=== PATIENT | male | born 1985 | race African-American/Black ===

== ENCOUNTER 2020-09-15 17:14 | Emergency (ER) | payer OTHER ==
[~2020-09-15] VITALS: Ht 170.2 cm; Wt 77.1 kg
[2020-09-15 20:06] LABS: HEMATOCRIT 31.1 % (42.0-52.0); HEMOGLOBIN 10.4 gm/dL (14.0-18.0); MCH 30.5 pg (26.0-34.0); MCHC 33.6 g/dL (28.0-37.0); MCV 90.8 fL (80.0-100.0); RBC 3.43 mil/uL (4.50-6.00); WBC 6.8 thou/uL (4.0-11.0)
[2020-09-15 20:19] LABS: CALCIUM 8.7 mg/dL (8.5-10.1); CREATININE 1.1 mg/dL (0.7-1.3); POTASSIUM 4.3 mmol/L (3.5-5.1)
[2020-09-15 20:25] LABS: ALBUMIN 3.2 g/dL (3.4-5.0); TOTAL BILIRUBIN 0.1 mg/dL (0.2-1.0); TOTAL PROTEIN 6.4 g/dL (6.4-8.2)
[2020-09-15] MEDS ORDERED: PERCOCET 5-3251 EACH PO (21:22)
[2020-09-15 21:35] VITALS: BP 115/71
== END 2020-09-15 21:35 | disposition home or self-care (01) ==
LOC: ER 17:14
PROVIDERS: Nurse Practitioner Family
DX: S22.42XA Multiple fractures of ribs, left side, initial encounter for closed fracture (principal); J94.2 Hemothorax; X58.XXXA Exposure to other specified factors, initial encounter; Y93.89 Activity, other specified; Y92.89 Other specified places as the place of occurrence of the external cause; Y99.8 Other external cause status